=== PATIENT | female | born 1975 | race Two or more races ===

== ENCOUNTER 2025-09-03 08:34 | Outpatient (RCR) | payer MEDICAID, SELFPAY ==
--- NOTE | 2025-09-03 16:02 | PTNOTE_ITS ---
PT OP Initial Eval Patient Information Visit Reasons: DISSOCIATIVE AND CONVERSION DISORDER Medical Diagnosis: F44.9 Treatment Dx #1: Difficulty Walking Start of Care: 09/03/25 Date of Onset: 2023 Smoking Status Smoking Status: Never smoker Initial Assessment Subjective: Pt is a 50 y/o female with the medical diagnosis of conversion disorder comes into therapy with limitation with ADLs. According to patient she was completely normal ~ 1 year ago and was able to walk and perform ADLs without limitation. Since her conversion disorder diagnose Pt has difficulty with walking, standing, chores, self care, cooking, cleaning, and performing recreational activities. Pt's past imaging has been negative and is also pending a neurology consult. Objective: BLE AROM: all motions are 50% towards end range BLE MMTs: grossly 3/5 BUE AROM: all motions are WFL BUE MMTs: grossly 3/5 TU sec completed half of the distance; unable to resume due to frustration Sharpen Romber sec Sit-Stand Test: unable Assessment: Pt demonstrate coordination deficits with extremities weakness leading to difficulty with ADLs and ambulation. Pt will benefit from physical therapy to increase mobility, strength, and work on gait. Short Term and Penitentiary Goals 1) Increase BLE MMTs grossly 4-/5 in 6 wks to be able to walk more than 30 mins 2) Increase BUE MMTs grossly to 4-/5 in 6 wks to be able to perform chores 3) Improve Tug score to 13 sec in 6 wks to be able to decrease fall risk 4) Increase sharpen romberg to 20 sec in 6 wks to be able to stand more than 15 mins without AD 5) INdep with HEP Treatment Plan 1) Manual Therapy 2) Therapeutic Activities 3) Therapeutic Exercises 4) Balance Training 5) Gait Training Frequency and Duration: 2 x wk for 6 wks Certification Dates: 09/03/25 to 12/02/25 Procedure Charges OP PT Eval Mod Complex 30 minutes: Yes
== END 2025-09-04 23:59 | disposition home or self-care (01) ==
LOC: CPTX 08:34
PROVIDERS: PCP Nurse Practitioner Family; Referring Provider Nurse Practitioner Family; Visit Provider Nurse Practitioner Family
DX: R26.2 Difficulty in walking, not elsewhere classified (principal); R53.1 Weakness; F44.9 Dissociative and conversion disorder, unspecified
CPT/HCPCS: 97162